=== PATIENT | male | born 1960 | race Caucasian/White ===

== ENCOUNTER 2021-09-09 14:41 | Emergency (ER) | payer BC ==
[~2021-09-09] VITALS: Ht 175.3 cm; Wt 99.8 kg
[2021-09-09] MEDS ORDERED: XARELTO10 M1 PO (14:49)
== END 2021-09-09 16:25 | disposition home or self-care (01) ==
LOC: ER 14:41
DX: S01.112A Laceration without foreign body of left eyelid and periocular area, initial encounter (principal); W10.8XXA Fall (on) (from) other stairs and steps, initial encounter; Y93.89 Activity, other specified; Y92.830 Public park as the place of occurrence of the external cause; I10 Essential (primary) hypertension; S50.02XA Contusion of left elbow, initial encounter